=== PATIENT | female | born 1970 | race Caucasian/White ===

== ENCOUNTER 2020-11-03 12:15 | Emergency (ER) | payer MEDICARE, OTHER ==
[~2020-11-03] VITALS: Ht 165.1 cm; Wt 86.2 kg
[2020-11-03 14:05] LABS: RED BLOOD COUNT 2.59 M/UL (4.00-5.10); WHITE BLOOD COUNT 6.2 K/UL (4.5-11.0)
[2020-11-03 14:07] LABS: HEMOGLOBIN 6.9 gm/dl (12.3-15.3)
[2020-11-03 15:26] LABS: BUN/CREATININE RATIO 10 (0-10)
[2020-11-03 16:17] LABS: BUN/CREATININE RATIO 10 (0-10)
[2020-11-03] MEDS ORDERED: PROVERA 10 MG T10 MG PO (21:06)
== END 2020-11-04 00:10 | disposition home or self-care (01) ==
LOC: ER1 12:15
PROVIDERS: Physician Assistant; Physician Assistant Medical
DX: N92.0 Excessive and frequent menstruation with regular cycle (principal); F17.210 Nicotine dependence, cigarettes, uncomplicated
CPT/HCPCS: 36430; 76856; 80053; 81001; 84703; 85025; 86850; 86900; 86901; 86920; 96374; 99284; P9016